=== PATIENT | male | born 1975 | race Caucasian/White ===

== ENCOUNTER 2020-08-21 17:50 | Inpatient (IN) | payer OTHER ==
[~2020-08-21] VITALS: Ht 172.7 cm; Wt 81.2 kg
[2020-08-21] MEDS ORDERED: ASPIRIN 81 MG CHEW TAB PO ONE (18:30)
[2020-08-21 18:43] LABS: BASOPHILS % 0.5 % (0.0-1.0); EOSINOPHILS # (AUTO) 0.1 (0.0-0.4); EOSINOPHILS % 1.7 % (0.0-6.0); HEMATOCRIT 45.3 % (38.2-49.6); HEMOGLOBIN 15.5 g/dL (14.0-18.0); LYMPHOCYTES # (AUTO) 2.2 (1.0-3.2); LYMPHOCYTES % 33.6 % (18.0-39.1); MEAN CORPUSCULAR HEMOGLOBIN 30.3 pg (28-32); MEAN CORPUSCULAR HGB CONC 34.2 g/dL (31-35); MEAN CORPUSCULAR VOLUME 88.6 fL (81-99); MONOCYTES # (AUTO) 0.3 (0.2-0.8); MONOCYTES % 5.2 % (4.4-11.3); NEUTROPHILS # (AUTO) 3.9 (2.1-6.9); NEUTROPHILS % 58.7 % (38.7-80.0); PLATELET COUNT 276 x10e3/uL (140-360); RED BLOOD COUNT 5.11 x10e6/uL (4.3-5.7); RED CELL DISTRIBUTION WIDTH 11.9 % (11.7-14.4)
[2020-08-21 18:55] LABS: INR 0.88; PROTHROMBIN TIME 12.4 seconds (11.9-14.5)
[2020-08-21 18:56] LABS: PARTIAL THROMBOPLASTIN TIME 26.7 seconds (23.8-35.5)
[2020-08-21 19:04] LABS: ALANINE AMINOTRANSFERASE 35 IU/L (0-55); ALBUMIN 4.3 g/dL (3.5-5.0); ALBUMIN/GLOBULIN RATIO 1.1 (0.8-2.0); ALKALINE PHOSPHATASE 71 IU/L (40-150); ANION GAP 13.3 mmol/L (8-16); BLOOD UREA NITROGEN 14 mg/dL (7-26); BUN/CREATININE RATIO 12 (6-25); CALCIUM 9.5 mg/dL (8.4-10.2); CARBON DIOXIDE 27 mmol/L (22-29); CHLORIDE 102 mmol/L (98-107); CREATINE KINASE 76 IU/L (30-200); CREATININE, SERUM 1.21 mg/dL (0.72-1.25); EST GLOMERULAR FILTRATION RATE > 60 ML/MIN (60-); GLUCOSE 95 mg/dL (74-118); POTASSIUM 3.3 mmol/L (3.5-5.1); SODIUM 139 mmol/L (136-145)
[2020-08-21] MEDS ORDERED: NITROGLYCERIN 0.4 MG SUBL SL PRN (20:15)
[2020-08-21] MEDS ORDERED: MORPHINE SULFATE INJ 2 MG/ML SYR IV PRN (20:15)
[2020-08-21] MEDS ORDERED: ONDANSETRON HCL INJ 2MG/ML 2ML 2 MG/ML VIAL IV PRN ×2 (20:15→21:45)
[2020-08-21] MEDS: FAMOTIDINE 20 MG TAB PO SCH (20:28)
[2020-08-21] MEDS: METOPROLOL SUCCINATE 25 MG TAB XL PO SCH (20:40)
[2020-08-21 20:50] VITALS: BP 132/94
[2020-08-21 21:02] VITALS: BP 132/94
[2020-08-21] MEDS ORDERED: POTASSIUM CHLORIDE 20 MEQ TAB CR PO STA (21:35)
[2020-08-21] MEDS ORDERED: MAGNESIUM/ALUMINUM/SIMETHICONE 30 ML UDC PO PRN (21:45)
[2020-08-21] MEDS ORDERED: ACETAMINOPHEN 325 MG TAB PO PRN (21:45)
[2020-08-21] MEDS ORDERED: MELATONIN 3 MG TAB PO PRN (21:45)
[2020-08-21] MEDS: SODIUM CHLORIDE FLUSH 10 ML SYR INJ PRN (22:22)
[2020-08-21] MEDS ORDERED: FENOFIBRIC ACI135 MG (23:08)
[2020-08-21 23:51] VITALS: BP 126/88
[2020-08-22] VITALS (8 sets, daily range): BP systolic 114–141; BP diastolic 78–96
[2020-08-22 06:57] LABS: CREATINE KINASE MB 0.4 ng/mL (0-5.0)
[2020-08-22 07:33] LABS: CHOL/HDL RATIO 7.8 (3.9-4.7)
[2020-08-22] MEDS ORDERED: REGADENOSON 0.4 MG/5 ML SYR IV ONE (09:51)
[2020-08-22 12:25] LABS: CREATINE KINASE 53 IU/L (30-200)
[2020-08-22] MEDS: METOPROLOL SUCCINATE 25 MG TAB XL PO SCH (13:16)
[2020-08-22] MEDS: ASPIRIN 81 MG ENTERIC COATED PO SCH (13:16)
[2020-08-22] MEDS: FAMOTIDINE 20 MG TAB PO SCH ×2 (13:16→21:16)
[2020-08-22 18:17] LABS: CREATINE KINASE 51 IU/L (30-200)
[2020-08-23] VITALS (18 sets, daily range): BP systolic 113–151; BP diastolic 70–99
[2020-08-23] MEDS: SODIUM CHLORIDE FLUSH 10 ML SYR INJ PRN (00:16)
[2020-08-23] MEDS ORDERED: SODIUM CHLORIDE 0.9% 1000ML 1,000 ML IV SCH ×2 (08:00→19:00)
[2020-08-23] MEDS: ASPIRIN 81 MG ENTERIC COATED PO SCH (08:52)
[2020-08-23] MEDS: FAMOTIDINE 20 MG TAB PO SCH ×2 (08:52→23:02)
[2020-08-23] MEDS: METOPROLOL SUCCINATE 25 MG TAB XL PO SCH (08:53)
[2020-08-23] MEDS ORDERED: HEPARIN SOD/SOD CHLORIDE 2,000 ML ONE (17:34)
[2020-08-23] MEDS ORDERED: IOPAMIDOL 370 MG/ML 200 ML INFUS..BTL INJ ONE (17:34)
[2020-08-23] MEDS ORDERED: LIDOCAINE HCL 2% LOCAL 20 ML VIAL ONE (17:34)
[2020-08-23] MEDS ORDERED: VERAPAMIL HCL 2.5 MG/ML 2 ML VIAL ONE (18:04)
[2020-08-23] MEDS ORDERED: SODIUM CHLORIDE 0.9% 1000ML 1,000 ML ONE (18:05)
[2020-08-23] MEDS ORDERED: FENTANYL CITRATE/PF 100MCG/2 ML INJ ONE (18:05)
[2020-08-23] MEDS ORDERED: MIDAZOLAM HCL 2 MG/2 ML VIAL ONE (18:05)
[2020-08-23] MEDS ORDERED: ASPIRIN 325 MG TAB ONE (18:53)
[2020-08-23] MEDS ORDERED: CLOPIDOGREL BISULFATE 75 MG TAB ONE (18:55)
[2020-08-24] VITALS: BP 131/80
[2020-08-24 04:00] VITALS: BP 128/87
[2020-08-24 08:10] VITALS: BP 121/77
[2020-08-24 09:00] VITALS: BP 121/77
[2020-08-24] MEDS ORDERED: CLOPIDOGREL BISULFATE 75 MG TAB PO SCH (09:00)
[2020-08-24] MEDS ORDERED: ATORVASTATIN 40 MG TAB PO SCH (09:00)
[2020-08-24] MEDS: FAMOTIDINE 20 MG TAB PO SCH (09:01)
[2020-08-24] MEDS: ASPIRIN 81 MG ENTERIC COATED PO SCH (09:01)
[2020-08-24] MEDS: METOPROLOL SUCCINATE 25 MG TAB XL PO SCH (09:03)
[2020-08-24 12:29] VITALS: BP 124/79
[2020-08-24] MEDS ORDERED: ONDANSETRON HCL 4 MG ORAL DISINTEGRATING TAB PO PRN (13:00)
[2020-08-24] MEDS ORDERED: NITROSTAT0.4 MG SL (15:55)
[2020-08-24] MEDS ORDERED: PLAVIX75 MG PO (15:55)
[2020-08-24] MEDS ORDERED: TOPROL XL25 MG PO (15:55)
[2020-08-24] MEDS ORDERED: Atorvastatin PO (15:55)
[2020-08-24] MEDS ORDERED: ASPIRIN EC81 MG PO (15:55)
[2020-08-24 16:30] VITALS: BP 131/85
== END 2020-08-24 17:00 | disposition home or self-care (01) | DRG 247 ==
LOC: ER 18:18 → ERHOLD 20:09 → MED/SURG 20:52 → OBSVTOIN 08-22 16:04
PROVIDERS: ADMIT Internal Medicine Critical Care Medicine; ATTEND Internal Medicine Critical Care Medicine
PROC: 027034Z Dilation of Coronary Artery, One Artery with Drug-eluting Intraluminal Device, Percutaneous Approach (ICD-10-PCS; principal; 2020-08-23)
PROC: 4A023N7 Measurement of Cardiac Sampling and Pressure, Left Heart, Percutaneous Approach (ICD-10-PCS; 2020-08-23)
PROC: B2111ZZ Fluoroscopy of Multiple Coronary Arteries using Low Osmolar Contrast (ICD-10-PCS; 2020-08-23)
DX: R07.9 Chest pain, unspecified (principal); I25.110 Atherosclerotic heart disease of native coronary artery with unstable angina pectoris; I42.8 Other cardiomyopathies; E87.6 Hypokalemia; G47.33 Obstructive sleep apnea (adult) (pediatric); I25.10 Atherosclerotic heart disease of native coronary artery without angina pectoris; Z82.49 Family history of ischemic heart disease and other diseases of the circulatory system; F17.210 Nicotine dependence, cigarettes, uncomplicated; E78.2 Mixed hyperlipidemia; Z20.822 Contact with and (suspected) exposure to COVID-19
CPT/HCPCS: 36415; 71045; 78452; 80053; 80061; 82550; 82553; 83880; 84484; 85025; 85610; 85730; 92928; 93005; 93017; 93306; 93458; 99152; 99153; 99284; A9502; C1876; C1887; G0378; J2001; J2250; J3010; J7030; Q9967; U0002

== ENCOUNTER 2021-04-02 19:13 | Emergency (ER) | payer OTHER ==
[~2021-04-02] VITALS: Ht 172.7 cm; Wt 83.9 kg
[~2021-04-02 19:13] MED LIST: ASPIRIN EC81 MG PO; Atorvastatin PO; FENOFIBRIC ACI135 MG; NITROSTAT0.4 MG SL; PLAVIX75 MG PO; TOPROL XL25 MG PO
[2021-04-02 19:44] LABS: BASOPHILS % 0.3 % (0.0-1.0); EOSINOPHILS # (AUTO) 0.1 (0.0-0.4); EOSINOPHILS % 0.7 % (0.0-6.0); HEMATOCRIT 43.9 % (38.2-49.6); HEMOGLOBIN 15.1 g/dL (14.0-18.0); LYMPHOCYTES # (AUTO) 1.7 (1.0-3.2); LYMPHOCYTES % 25.8 % (18.0-39.1); MEAN CORPUSCULAR HEMOGLOBIN 30.2 pg (28-32); MEAN CORPUSCULAR HGB CONC 34.4 g/dL (31-35); MEAN CORPUSCULAR VOLUME 87.8 fL (81-99); MONOCYTES # (AUTO) 0.3 (0.2-0.8); MONOCYTES % 4.5 % (4.4-11.3); NEUTROPHILS # (AUTO) 4.6 (2.1-6.9); NEUTROPHILS % 68.3 % (38.7-80.0); PLATELET COUNT 248 x10e3/uL (140-360); RED CELL DISTRIBUTION WIDTH 12.8 % (11.7-14.4)
[2021-04-02] MEDS ORDERED: ASPIRIN 81 MG CHEW TAB PO ONE (19:45)
[2021-04-02 19:53] LABS: INR 0.86; PROTHROMBIN TIME 11.9 seconds (11.9-14.5)
[2021-04-02 19:54] LABS: PARTIAL THROMBOPLASTIN TIME 24.8 seconds (23.8-35.5)
[2021-04-02 19:58] LABS: ALANINE AMINOTRANSFERASE 62 IU/L (0-55); ALBUMIN 4.4 g/dL (3.5-5.0); ALKALINE PHOSPHATASE 72 IU/L (40-150); ANION GAP 17.5 mmol/L (8-16); BLOOD UREA NITROGEN 10 mg/dL (7-26); BUN/CREATININE RATIO 11 (6-25); CALCIUM 9.7 mg/dL (8.4-10.2); CARBON DIOXIDE 22 mmol/L (22-29); CHLORIDE 103 mmol/L (98-107); CREATINE KINASE 92 IU/L (30-200); EST GLOMERULAR FILTRATION RATE 92 ML/MIN (60-); GLUCOSE 112 mg/dL (74-118); POTASSIUM 3.5 mmol/L (3.5-5.1); SODIUM 139 mmol/L (136-145)
[2021-04-02 20:08] LABS: ALBUMIN/GLOBULIN RATIO 1.2 (0.8-2.0)
== END 2021-04-02 21:12 | disposition home or self-care (01) ==
LOC: ER 19:21
DX: R07.9 Chest pain, unspecified (principal); E78.5 Hyperlipidemia, unspecified
CPT/HCPCS: 36415; 71045; 80053; 82550; 82553; 83880; 84484; 85025; 85610; 85730; 93005; 99284

== ENCOUNTER → 2021-05-07 | Day surgery (SDC) | payer OTHER ==
[2021-05-03 14:46] LABS: BASOPHILS % 0.2 % (0.0-1.0); EOSINOPHILS # (AUTO) 0.1 (0.0-0.4); EOSINOPHILS % 2.1 % (0.0-6.0); HEMOGLOBIN 14.3 g/dL (14.0-18.0); LYMPHOCYTES # (AUTO) 1.5 (1.0-3.2); LYMPHOCYTES % 31.1 % (18.0-39.1); MEAN CORPUSCULAR HEMOGLOBIN 30.3 pg (28-32); MONOCYTES # (AUTO) 0.3 (0.2-0.8); MONOCYTES % 5.6 % (4.4-11.3); NEUTROPHILS # (AUTO) 2.9 (2.1-6.9); NEUTROPHILS % 60.6 % (38.7-80.0); PLATELET COUNT 223 x10e3/uL (140-360); RED BLOOD COUNT 4.72 x10e6/uL (4.3-5.7)
[2021-05-03 14:55] LABS: INR 0.88; PROTHROMBIN TIME 12.1 seconds (11.9-14.5)
[2021-05-03 14:56] LABS: PARTIAL THROMBOPLASTIN TIME 25.2 seconds (23.8-35.5)
[2021-05-03 15:06] LABS: ALBUMIN 4.4 g/dL (3.5-5.0); ALBUMIN/GLOBULIN RATIO 1.3 (0.8-2.0); ANION GAP 14.1 mmol/L (8-16); CALCIUM 9.2 mg/dL (8.4-10.2); CHOL/HDL RATIO 3.7 (3.9-4.7); CREATININE, SERUM 0.92 mg/dL (0.72-1.25); POTASSIUM 4.1 mmol/L (3.5-5.1)
[~2021-05-07] VITALS: Ht 172.7 cm; Wt 82.6 kg
[2021-05-07] VITALS (7 sets, daily range): BP systolic 103–113; BP diastolic 75–88
[~2021-05-07] MED LIST changes: +ADENOSINE 3MG/1ML 30ML VIAL ONE; +ATORVASTATIN CA20 MG PO; +FAMOTIDINE20 MG PO; +FENTANYL CITRATE/PF 100MCG/2 ML INJ ONE; +HEPARIN SOD/SOD CHLORIDE 2,000 ML ONE; +IOPAMIDOL 370 MG/ML 200 ML INFUS..BTL INJ ONE; +LIDOCAINE HCL 2% LOCAL 20 ML VIAL ONE; +LISINOPRIL5 MG PO; +MIDAZOLAM HCL 2 MG/2 ML VIAL ONE; +SODIUM CHLORIDE 0.9% 1000ML 1,000 ML ONE; +SODIUM CHLORIDE 0.9% 50ML 0 ML ONE; +VERAPAMIL HCL 2.5 MG/ML 2 ML VIAL ONE; +ZETIA10 MG PO
== END | disposition home or self-care (01) ==
LOC: CATH LAB 08:15
PROVIDERS: ATTEND Internal Medicine Cardiovascular Disease
DX: I25.118 Atherosclerotic heart disease of native coronary artery with other forms of angina pectoris (principal); I10 Essential (primary) hypertension; E78.5 Hyperlipidemia, unspecified; Z01.812 Encounter for preprocedural laboratory examination; Z20.822 Contact with and (suspected) exposure to COVID-19; Z88.8 Allergy status to other drugs, medicaments and biological substances; Z09 Encounter for follow-up examination after completed treatment for conditions other than malignant neoplasm; Z95.5 Presence of coronary angioplasty implant and graft
CPT/HCPCS: 36415; 76937; 80053; 80061; 85025; 85610; 85730; 93458; C1887; J2001; J2250; J3010; J7030; Q9967; U0002; 99152; J0153